=== PATIENT | female | born 1965 | race Caucasian/White ===

== ENCOUNTER 2021-05-10 05:10 | Day surgery (SDC) | payer BC ==
[2021-05-09 16:26] LABS: BASOPHILS 0.1 % (0-2); EOSINOPHILS 0 % (0-7); HEMATOCRIT 42.8 % (36.0-48.0); HEMOGLOBIN 14.5 g/dL (12-16); LYMPHOCYTES 8.9 % (15-50); MCH 28.8 pg (26.0-34.0); MCV 84.6 fL (80.0-100.0); MEAN PLATELET VOLUME 7.5 fL (7.4-10.4); MONOCYTES 4.5 % (2-11); NEUTROPHILS 86.5 % (40-80); PLATELET COUNT 298 10x3/uL (130-400); RBC 5.06 10x6/uL (4.00-5.40); RDW 13.3 % (11.5-14.5); WBC 9.3 10x3/uL (4.8-10.8)
[2021-05-09 16:39] LABS: CALC OSMOLALITY 283 mosm/kg (275-300); CALCIUM 10.8 mg/dL (8.5-10.1); CARBON DIOXIDE 27.4 mmol/L (21.0-32.0); CHLORIDE - SERUM 106 mmol/L (98-107); CREATININE - SERUM 0.7 mg/dL (0.6-1.3); GLUCOSE 115 mg/dL (74-106); POTASSIUM - SERUM 3.9 mmol/L (3.5-5.1); SODIUM 142 mmol/L (136-145); UREA NITROGEN 13 mg/dL (7-18); eGFR NON AFRICAN AMERICAN > 90 mL/min (90-120)
[2021-05-09 16:46] LABS: SARS-CoV-2 ANTIGEN NEGATIVE- SARS-COV-2 (NEGATIVE)
[~2021-05-10] VITALS: Ht 154.9 cm; Wt 58.5 kg
[~2021-05-10 05:10] MED LIST: BIOMEGA PO; GABAPENTIN300 MG PO; MOBIC7.5 MG PO; PROCOSA PO; VITAMIN D325 MC1 PO; [UNRECOGNIZED DRUG - OTHER] PO; [UNRECOGNIZED DRUG - OTHER] PO; [UNRECOGNIZED DRUG - OTHER] PO
[2021-05-10 05:39] VITALS: BP 146/92; BMI 24.4
--- NOTE | 2021-05-10 10:05 | NUR ---
PT ARRIVED TO ROOM 2210 VIA STRETCHER, VS STABLE, NO SIGNS OF DISTRESS, IV STARTED AT 75mL/HR, SCD'S PLACED AND RUNNING, WARM BLANKETS PROVIDED
[2021-05-10 10:06] VITALS: BP 135/69
--- NOTE | 2021-05-10 10:45 | NUR ---
PT RESTING COMFORTABLY, DAUGHTER AT BEDSIDE
[2021-05-10 10:51] VITALS: BP 135/69; Ht 154.9 cm; Wt 58.5 kg
--- NOTE | 2021-05-10 14:29 | NUR ---
PT HAS SMALL INCISION ON RIGHT ANTERIOR PORTION OF NECK, DRESSED WITH GLUE AND STERI STRIPS THAT ARE CLEAN DRY AND INTACT, HOB OF BED SET TO 30 DEGREES OR HIGHER, DAUGHTER AT BEDSIDE
[2021-05-10 16:49] VITALS: BP 141/73
[2021-05-10 20:59] VITALS: BP 139/77
[2021-05-10 23:55] VITALS: BP 110/62
[2021-05-11] MEDS ORDERED: MEDROL DOSE PACK4 MG PO (08:54)
[2021-05-11] MEDS ORDERED: TYLENOL W/CODEI1 TAB PO (08:54)
[2021-05-11 09:01] VITALS: BP 134/73
--- NOTE | 2021-05-11 09:33 | OP ---
PATIENT NAME: KAMARI LABOY MEDICAL RECORD: [id number] :61 LOCATION:[facility] ADMISSION DATE: SURGEON: MI REYES MD DATE OF OPERATION: 05/10/2021 DATE OF SERVICE: 05/10/2021 PREOPERATIVE DIAGNOSES: Large disk herniation, C5-C6 left, with left C6 radiculopathy. POSTOPERATIVE DIAGNOSES: Large disk herniation, C5-C6 left, with left C6 radiculopathy. PROCEDURE: Anterior cervical diskectomy and fusion at C5-C6 with [employer] medical anterior cervical plate and a separate PEEK interbody cage, Olga bone allograft with stem cells. SURGEON: Mi Reyes MD DESCRIPTION OF PROCEDURE: After induction of general endotracheal anesthesia, the patient was positioned supine on the operating table with the interscapular roll. The neck was prepped and draped in usual sterile fashion. Fluoroscopic x-ray and freer dissect to localize the C5-C6 interspace. After infiltration of 1:100,000 epinephrine with 1% lidocaine, a transverse skin incision was carried out from the midline to the sternocleidomastoid muscle. The platysma was divided with sharp dissection. Using Metzenbaum scissors, I proceeded in the avascular plane medial to the carotid sheath. The C5-C6 interspace was identified with fluoroscopic x-ray and a spinal needle. The longus colli muscles were elevated from the bodies of C5 and C6. Self-retaining retractors placed deep to the longus colli muscles. [place] distraction pins were placed in the bodies of C5 and C6. The annulus was incised. Disk material was removed with pituitary rongeurs and curettes. Posteriorly, there was a large disk herniation through the posterior longitudinal ligament. This was removed with pituitary rongeurs under microscopic illumination. Osteophytes were drilled away posteriorly with Midas Jonnie drill. The posterior longitudinal ligament was removed with 2-mm Cloward punch. Following this, the dura was decompressed as well. A PEEK interbody cage was placed in the disk space under distraction. Prior to this, it was filled with Olga bone allograft with bone stem cells. A separate Zavation plate and screws was used to span the C5-C6 interspace. Self-drilling screws were placed through the holes in the plate. Locking cams were tightened down over the screw heads. Good position of the hardware was confirmed with a fluoroscopic x-ray. The platysma and subdermal layer was closed with interrupted 4-0 Vicryl suture. The skin was reapproximated with Steri-Strips and benzoin. A sterile dressing was applied to the wound. The patient was awakened in good condition and taken to recovery. All counts were reported as correct. Estimated blood loss was minimal. TRANSINT:[id number] Voice Confirmation ID: [id number] DOCUMENT ID: [id number] OPERATIVE REPORT [id number] KAMARI LABOY JOHN MD at 0933 CC: [id number] DICTATION DATE: 05/10/21924 VACCINE CUSTOMER REPRESENTATIVE: 05/10/21 1111 [facility] [address] [place] [address]
--- NOTE | 2021-05-11 13:28 | NUR ---
PT LEFT VIA WHEELCHAIR ASSISTED BY HOSPITAL IN STABLE CONDITION, NO SIGNS OF DISTRESS, GRETEL LAUGHLIN REVIEWED AND SIGNED DISCHARGE PAPERWORK WITH PT AND FAMILY, IV REMOVED
== END 2021-05-11 13:32 | disposition home or self-care (01) ==
LOC: D.OPS 05:10 → D.MS 09:15 → D.OPS 05-11 13:32
PROVIDERS: Anesthesiology; ATTEND Neurological Surgery
DX: M50.122 Cervical disc disorder at C5-C6 level with radiculopathy (principal); I10 Essential (primary) hypertension; E78.5 Hyperlipidemia, unspecified; E78.00 Pure hypercholesterolemia, unspecified